=== PATIENT | male | born 1955 | race Caucasian/White ===

== ENCOUNTER 2022-03-27 22:27 | Emergency (ER) | payer MEDICARE, MEDICAID, SELFPAY ==
[2022-03-27 22:48] VITALS: BP 182/98; PULSE 78; RESP 18; TEMP 36.8; O2SAT 98; BMI 29.2
--- NOTE | 2022-03-28 00:07 | CT_ITS ---
PROCEDURE INFORMATION: Exam: CT Abdomen And Pelvis Without Contrast Exam date and time: 03/28/2022 1:11 AM Age: 66 years old Clinical indication: Other: Blood in urine TECHNIQUE: Imaging protocol: Computed tomography of the abdomen and pelvis without contrast. Radiation optimization: All CT scans at this facility use at least one of these dose optimization techniques: automated exposure control; mA and/or kV adjustment per patient size (includes targeted exams where dose is matched to clinical indication); or iterative reconstruction. COMPARISON: No relevant prior studies available. FINDINGS: Lungs: There is a 7 mm calcified granuloma of the left lower lobe. No focal consolidation. No pleural effusion or pneumothorax. Heart: The heart size is normal. No pericardial effusion. Cardiac pacemaker wires noted. Liver: There is a 2.5 cm cyst of the left hepatic lobe. There is an adjacent 5 mm cyst. No solid mass identified on this noncontrast study. Gallbladder and bile ducts: Gallbladder contents are heterogeneous suspicious for sludge and/or small stones. No ductal dilation. Pancreas: Unremarkable. Spleen: There is a 2 cm cyst of the spleen with mild peripheral calcifications. Adrenal glands: Unremarkable. Kidneys and ureters: No renal mass or hydronephrosis. There are rounded hypodensities of the inferior right kidney suspicious for cysts measuring 1.5 and 1.0 cm. There is a rounded exophytic hypodensity at the right renal hilum also suspicious for cyst. Calcifications at the kita bilaterally likely vascular in origin. The ureters are normal in caliber. No urinary tract stone Stomach and bowel: Small and large bowel caliber is normal. There is moderate right colonic stool. No significant diverticulosis or CT evidence of acute diverticulitis. The Appendix: No evidence of appendicitis. Intraperitoneal space: No free air. No significant fluid collection. Retroperitoneal space: No bulky lymphadenopathy. Vasculature: There is mild aneurysmal dilation of the infrarenal abdominal aorta measuring 3.1 cm. Lymph nodes: Unremarkable. No enlarged lymph nodes. Urinary bladder: The urinary bladder is partially decompressed and unremarkable. No urinary bladder stone. Reproductive: The prostate is normal in size with small calcifications. Bones/joints: Unremarkable. No acute osseous abnormality. Soft tissues: Unremarkable. IMPRESSION: 1. Multiple rounded hypodensities of the right kidney suspicious for cysts. Confirmation with renal ultrasound is suggested. 2. No evidence of urinary tract stone. Etiology of hematuria is not identified on the study. 3. Hepatic and splenic cysts. 4. Mild aneurysmal dilation of the infrarenal abdominal aorta measuring 3.1 cm. 5. Evidence of old granulomatous disease. COMMENTS: Consistent with the [employer]'s Incidental Findings Committee white paper (J Am Kristi Radiol 2018): Any incidental renal lesion less than 1 cm or classified as too small to characterize, or any incidental cystic renal lesion characterized as simple-appearing, is likely benign. No follow-up imaging is recommended for these lesions per consensus recommendations based on imaging criteria.
[2022-03-28 00:10] LABS: Microscopic, Urine URINE MICROSCOPIC (MICROSCOPIC)
--- NOTE | 2022-03-28 00:15 | PC.NURSE ---
patient going to Radiology @ this time.
[2022-03-28 00:21] LABS: Basophils # 0.1 K/mm3 (0-0.2); Basophils % 1.3 % (0.1-2.0); Eosinophils # 0.3 K/mm3 (0.0-0.4); Eosinophils % 3.4 % (0.1-12.0); Hemoglobin 15.9 g/dL (14.1-18.0); Lymphocytes # 1.4 K/mm3 (0.7-4.5); Lymphocytes % 16.2 % (10-50); Mean Corpuscular HGB Conc 32.6 g/dL (31.8-35.4); Mean Corpuscular Hemoglobin 29.1 pg (27.0-31.2); Mean Corpuscular Volume 89.3 fl (80-94); Mean Platelet Volume 11.5 fl (7.4-10.4); Monocytes # 0.5 K/mm3 (0.1-1.0); Monocytes % 6.3 % (1.7-9.3); Neutrophils # 6.2 K/mm3 (1.8-7.8); Neutrophils % 72.9 % (37.0-80.0); Platelet Count 158 K/mm3 (142-424); Red Blood Count 5.48 M/mm3 (4.60-6.20); White Blood Count 8.4 K/mm3 (4.8-10.8)
--- NOTE | 2022-03-28 00:21 | PC.NURSE ---
patient Back from [facility] @ this time.
[2022-03-28 00:24] LABS: Chloride 103 mmol/L (98-107); Potassium 4.3 mmoL/L (3.5-5.1); Sodium 141 mmol/L (136-145)
[2022-03-28 00:27] LABS: Alanine Aminotransferase 18 U/L (12-78); Albumin Level 4.2 g/dl (3.5-5.0); Albumin/Globulin Ratio 1.3 (1.1-1.8); Alkaline Phosphatase 89 U/L (38-126); Anion Gap 12.3 mEq/L (5-15); Aspartate Amino Transferase 27 U/L (17-59); Bilirubin,Total 0.6 mg/dl (0.2-1.3); Blood Urea Nitrogen 20 mg/dl (9-20); Calcium 9.1 mg/dl (8.4-10.2); Carbon Dioxide 30 mmol/L (22.0-30.0); Creatinine Clearance Estimated 57 mL/min (50-200); Estimated Glomerular Filt Rate 43 ml/min (>60); GFR (African American) 52 ML/MIN (>60); Globulin 3.3 g/dL (1.3-3.2); Glucose 99 mg/dl (74-100); Total Protein,Serum 7.5 g/dl (6.3-8.2)
--- NOTE | 2022-03-28 00:28 | HMH.EDUROGM ---
Discharge Plan Disposition Chief Complaint: Urogenital-Male Prescriptions Prescriptions: No Action atorvastatin 40 mg Tablet 40 mg PO DAILY carvedilol 6.25 mg Tablet 6.25 mg PO DAILY polyethylene glycol 3350 [Miralax] 17 gram Powder In Packet 17 g PO DAILY clopidogrel 75 mg Tablet 75 mg PO DAILY isosorbide dinitrate 20 mg Tablet 20 mg PO TID Rx Instructions: allow nitrate-free interval of 12-14 hrs per 24-hr period nitroglycerin 0.4 mg Tablet, Sublingual 0.4 mg SUBLINGUAL Q5M PRN (Reason: Chest Pain) Rx Instructions: do not exceed 3 doses per episode docusate sodium 100 mg Capsule 100 mg PO BID hydroxyzine HCl 25 mg Tablet 25 mg PO QID aspirin 81 mg Tablet 81 mg PO DAILY loperamide 2 mg Capsule 2 mg PO Q4H PRN (Reason: Diarrhea) Rx Instructions: administer after each loose stool until symptoms controlled; do not exceed 8 mg per 24 hrs Referrals Follow up/Referrals: Danie Regalado MD [Primary Care Provider] - See instructions Clinical Impressions Clinical Impression: Hematuria, AAA (abdominal aortic aneurysm) without rupture Instructions Patient Instructions: DI for Hematuria Discharge ED Provider: Danie Regalado Male Urogenital HPI General Chief complaint: Urogenital-Male Stated complaint: Blood in Urine Time Seen by Provider: 03/28/22 00:28 Mode of Arrival: EMS Source of Information: Patient, EMS and Medical Record Limitations: No Limitations Description of Symptoms (Recalled from ER Triage Doc. by RN): pt states that at approx 1930 he went to the restroom and peed bright red blood . Denies any painful urination, urinary frequency, pressure with urination, injury or burning with urination. Also denies recent fever or flank or back pain. History of Present Illness HPI Narrative: wm with reported hematuria tonight w/o fever or rash and no trauma Onset (ago): hour(s) Duration: intermittent Severity: moderate Reports denies other symptoms Related Data Home Medications Medication Instructions Recorded Confirmed aspirin 81 mg tablet 81 mg PO DAILY Supplement 03/27/22 03/27/22 atorvastatin 40 mg tablet 40 mg PO DAILY Cholesterol 03/27/22 03/27/22 carvedilol 6.25 mg tablet 6.25 mg PO DAILY Blood thinner 03/27/22 03/27/22 clopidogrel 75 mg tablet 75 mg PO DAILY Blood thinner 03/27/22 03/27/22 docusate sodium 100 mg capsule 100 mg PO BID bowels 03/27/22 03/27/22 hydroxyzine HCl 25 mg tablet 25 mg PO QID Anxiety 03/27/22 03/27/22 isosorbide dinitrate 20 mg tablet 20 mg PO TID Blood thinner 03/27/22 03/27/22 loperamide 2 mg capsule 2 mg PO Q4H PRN Diarrhea 03/27/22 03/27/22 nitroglycerin 0.4 mg sublingual 0.4 mg sublingual Q5M PRN Chest 03/27/22 03/27/22 tablet Pain polyethylene glycol 3350 17 gram 17 g PO DAILY diarrhea 03/27/22 03/27/22 oral powder packet (Miralax) Allergies Allergy/AdvReac Type Severity Reaction Status Date / Time No Known Allergies Allergy Verified 03/28/22 00:06 [facility] Social History Smoking Status: Current every day smoker alcohol intake: never current occupational status: retired Travel in the last 8 weeks: None ROS Obtained: Yes All systems reviewed & no additional complaints except as documented Physical Exam General General appearance: alert Head Head exam: normocephalic Eye Eye exam: Present PERRL and EOMI ENT ENT exam: Present mucous membranes moist Neck Neck exam: Present trachea midline Respiratory Respiratory exam: Present normal lung sounds bilaterally; Absent respiratory distress Cardiovascular Cardiovascular exam: Present regular rate Abdominal Exam Abdominal exam: Present soft; Absent tenderness Extremities Exam Extremities exam: Present full ROM Back Exam Back exam: Absent CVA tenderness (R) Neurological Exam Neurological exam: Present alert and CN II-XII intact Psychiatric Psychiatric exam: Present normal affect Skin Skin exam: Absent
[2022-03-28 00:34] LABS: Appearance,Urine CLEAR (Clear); Bilirubin,Urine Negative (Negative); Blood, Urine 3+ (Negative); Color,Urine YELLOW (Yellow); Glucose,Urine (UA) Negative (Negative); Ketones,Urine TRACE (Negative); Leukocyte Esterase,Urine Negative (Negative); Nitrate,Urine Negative (Negative); PH,Urine 5.5 (5.0-8.5); Protein,Urine 2+ (Negative); Specific Gravity, Urine >= 1.030 (1.005-1.030); Urobilinogen,Urine 0.2 EU/dl (0.2)
[2022-03-28 00:40] LABS: Bacteria,Urine 1+ /lpf; Mucus,Urine 1+ /lpf; WBC,Urine Occasional #/hpf (0-3)
--- NOTE | 2022-03-28 01:48 | PC.NURSE ---
Called [facility] regarding patients discharge. Spoke with Iona who stated she will send someone to pick him up.
[2022-03-28 01:50] VITALS: BP 178/92; PULSE 76; RESP 18; TEMP 36.6; O2SAT 98
[2022-03-28 02:30] LABS: Prostate Specific Ag Screen 2.1 ng/ml (0.0-4.0)
== END 2022-03-28 02:02 | disposition home or self-care (01) ==
PROVIDERS: Emergency Provider Emergency Medicine; PCP Emergency Medicine
DX: R31.9 Hematuria, unspecified (principal); R07.9 Chest pain, unspecified; R19.7 Diarrhea, unspecified; F17.200 Nicotine dependence, unspecified, uncomplicated; Z79.02 Long term (current) use of antithrombotics/antiplatelets; Z79.82 Long term (current) use of aspirin; Z79.899 Other long term (current) drug therapy
CPT/HCPCS: 74176; 80053; 81001; 85025; 87086; 87088; 87186; 99285; G0103

== ENCOUNTER 2024-10-01 16:36 | Emergency (ER) | payer MEDICARE, MEDICAID, SELFPAY ==
[2024-10-01 16:45] VITALS: BP 165/85; PULSE 72; RESP 18; TEMP 36.8; O2SAT 100; BMI 23.5
--- NOTE | 2024-10-01 16:48 | XR_ITS ---
PROCEDURE INFORMATION: Exam: XR Left Hand Exam date and time: 10/01/2024 5:01 PM Age: 69 years old Clinical indication: Injury or trauma; Fall; Blunt trauma (contusions or hematomas); Hand; Left; Additional info: Foosh injury, left hand pain and swelling TECHNIQUE: Imaging protocol: Radiologic exam of the left hand. Views: 3 or more views. COMPARISON: CR XR HAND LT MIN 3V 10/01/2024 5:01 PM FINDINGS: Bones/joints: There is an acute nondisplaced fracture involving the distal radial metaphysis. No significant angulation or comminution. No additional acute fractures are seen. Previously questioned mild widening of the scapholunate joint space appears less prominent on current exam. Soft tissues: There is mild associated perifractural edema. No subcutaneous emphysema or radiopaque foreign bodies. IMPRESSION: Acute nondisplaced fracture involving the distal radial metaphysis with associated soft tissue edema.
--- NOTE | 2024-10-01 16:49 | XR_ITS ---
PROCEDURE INFORMATION: Exam: XR Left Forearm Exam date and time: 10/01/2024 5:05 PM Age: 69 years old Clinical indication: Injury or trauma; Fall; Blunt trauma (contusions or hematomas); Arm, lower; Left; Additional info: Left wrist pain and swelling after foosh injury TECHNIQUE: Imaging protocol: Radiologic exam of the left forearm. Views: 2 views. COMPARISON: CR XR FOREARM LT 2V 10/01/2024 5:05 PM FINDINGS: Bones/joints: There is an acute nondisplaced fracture involving the distal radial metaphysis. No significant angulation or comminution. No additional acute fractures are seen. Soft tissues: There is mild associated perifractural edema. No subcutaneous emphysema or radiopaque foreign bodies. No elbow joint effusion. IMPRESSION: Acute nondisplaced fracture involving the distal radial metaphysis with associated soft tissue edema.
--- NOTE | 2024-10-01 16:49 | XR_ITS ---
PROCEDURE INFORMATION: Exam: XR Left Wrist Exam date and time: 10/01/2024 5:02 PM Age: 69 years old Clinical indication: Injury or trauma; Fall; Blunt trauma (contusions or hematomas); Wrist; Left; Additional info: Left wrist pain and swelling after foosh injury TECHNIQUE: Imaging protocol: Radiologic exam of the left wrist. Views: 3 or more views. COMPARISON: CR Wrist L 10/01/2024 5:02 PM FINDINGS: Bones/joints: There is an acute nondisplaced fracture involving the distal radial metaphysis. No significant angulation or comminution. No additional acute fractures are seen. Soft tissues: There is mild associated perifractural edema. No subcutaneous emphysema or radiopaque foreign bodies. IMPRESSION: Acute nondisplaced fracture involving the distal radial metaphysis with associated soft tissue edema.
--- NOTE | 2024-10-01 16:51 | ED_ITS ---
<Statement entered by Marie Lopez DO - 10/02/24 00:44> I was consulted by the FAVIOLA, and we discussed the complexity of the problems being addressed. I approved the treatment and management plan for this patient's care in the emergency department, thus performing a substantive portion of the medical decision making. Marie Lopez DO Discharge Plan Disposition Patient Disposition: Home, Self-Care Condition: Good Chief Complaint: Extremity Injury, Upper Prescriptions Prescriptions: No Action atorvastatin 40 mg Tablet 40 mg PO DAILY carvedilol 6.25 mg Tablet 6.25 mg PO DAILY polyethylene glycol 3350 [Miralax] 17 gram Powder In Packet 17 g PO DAILY clopidogrel 75 mg Tablet 75 mg PO DAILY isosorbide dinitrate 20 mg Tablet 20 mg PO TID Rx Instructions: allow nitrate-free interval of 12-14 hrs per 24-hr period nitroglycerin 0.4 mg Tablet, Sublingual 0.4 mg SUBLINGUAL Q5M PRN (Reason: Chest Pain) Rx Instructions: do not exceed 3 doses per episode docusate sodium 100 mg Capsule 100 mg PO BID hydroxyzine HCl 25 mg Tablet 25 mg PO QID aspirin 81 mg Tablet 81 mg PO DAILY loperamide 2 mg Capsule 2 mg PO Q4H PRN (Reason: Diarrhea) Rx Instructions: administer after each loose stool until symptoms controlled; do not exceed 8 mg per 24 hrs Referrals Follow up/Referrals: Provider,Referral, MD [Primary Care Provider] - See instructions Juan Pablo Can DO [Staff Physician] - See instructions Activity Restrictions/Add. Instructions Additional Instructions/Restrictions: Please follow-up with the orthopedic doctor in the upcoming days, utilize rest, ice, ibuprofen Tylenol as needed for pain, please keep splint/cast on until orthopedic follow-up. Clinical Impressions Clinical Impression: Fracture of left radius Instructions Patient Instructions: DI for Distal Radius Fracture Print Language Print Language: Swedish Discharge ED Provider: Marie Lopez General Adult HPI General Chief complaint: Extremity Injury, Upper Stated complaint: WRIST INJURY ON09/27/24 Time Seen by Provider: 10/01/24 16:43 Mode of Arrival: EMS Source of Information: Patient and EMS Description of Symptoms (Recalled from ER Triage Doc. by RN): Pt presents from [facility] via [facility] for evaluation of a fracture in his left arm. Pt fell on saturday and had a mobile x-ray done there, received results that there was a fracture. Pt did not hit his head when he fell, -loc/-BT. History of Present Illness HPI narrative: 69-year-old male presents to the emergency department via EMS with left wrist pain and swelling, patient states that he underwent what sounds like a FOOSH injury on Saturday, he describes it as a mechanical fall, he states that he tripped on a twig , causing him to fall and tried to catch his fall with his left hand/wrist, he had what sounds like a mobile x-ray , performed at facility, which showed acute fracture, unsure of exact fracture site, patient has been utilizing Tylenol and ice, with little no relief of his symptomatology, patient has any fever chills chest pain shortness of breath nausea vomiting constipation diarrhea no numbness or tingling, no radicular type symptomatology, patient did not strike the head, did not lose consciousness, no presyncopal or syncopal episode, no dizziness, patient is not on any anticoagulant therapy, otherwise medical history consistent with prior TIA/CVA, hypertension, hyperlipidemia, implantable pacemaker/defibrillator, patient is current everyday smoker, denies any alcohol or drug use, no strays vitals are unremarkable. Onset (ago): day(s) Related Data Home Medications ?Medication ?Instructions ?Recorded ?Confirmed aspirin 81 mg tablet 81 mg PO DAILY Supplement 03/27/22 03/27/22 atorvastatin 40 mg tablet 40 mg PO DAILY Cholesterol 03/27/22 03/27/22 carvedilol 6.25 mg tablet 6.25 mg PO DAILY Blood thinner 03/27/22 03/27/22 clopidogrel 75 mg tablet 75 mg PO DAILY Blood thinner 03/27/22 03/27/22 docusate sodium 100 mg capsule 100 mg PO BID bowels 03/27/22 03/27/22 hydroxyzine HCl 25 mg tablet 25 mg PO QID Anxiety 03/27/22 03/27/22 isosorbide dinitrate 20 mg tablet 20 mg PO TID Blood thinner 03/27/22 03/27/22 loperamide 2 mg capsule 2 mg PO Q4H PRN Diarrhea 03/27/22 03/27/22 nitroglycerin 0.4 mg sublingual 0.4 mg sublingual Q5M PRN Chest 03/27/22 03/27/22 tablet Pain polyethylene glycol 3350 17 gram 17 g PO DAILY diarrhea 03/27/22 03/27/22 oral powder packet (Miralax) Allergies Allergy/AdvReac Type Severity Reaction Status Date / Time No Known Allergies Allergy Verified 03/28/22 00:06 [facility] Disclaimer: The information contained in this section may have been updated after the patient was seen, as this information can be updated by other users. Social History (Updated 03/28/22 @ 01:49 by Danie Regalado MD) Smoking Status: Current every day smoker alcohol intake: never current occupational status: retired Travel in the last 8 weeks?: None Have you lived/traveled outside [place] in past 30 days?: No Contact w/someone who lives/traveled outside [place] past 30 days?: No Exposure to someone with infectious disease in past 14 days?: No Do you have a fever (greater than 100.4 F or 38 C)?: No Have you tested positive for COVID-19?: No Exposed to someone with COVID-19 in past 14 days?: No Do you have a sore throat?: No Do you have a cough?: No Do you have any weakness?: No Do you have any diarrhea?: No Are you experiencing any unusual bleeding?: No Do you have any muscle aches/pain?: No Do you have any abdominal pain?: No Are you experiencing loss of taste or smell?: No ROS Obtained: Yes All systems reviewed & no additional complaints except as documented Physical Exam General General appearance: alert and in no apparent distress Head Head exam: atraumatic and normocephalic Eye Eye exam: Present PERRL and EOMI ENT ENT exam: Present mucous membranes moist Neck Neck exam: Present normal inspection Chest Chest inspection: Present normal inspection and symmetric chest wall rise Respiratory Respiratory exam: Present normal lung sounds bilaterally; Absent respiratory distress Cardiovascular Cardiovascular exam: Present regular rate and normal rhythm Abdominal Exam Abdominal exam: Present soft; Absent tenderness Extremities Exam Extremities exam: Present normal inspection, tenderness, joint swelling and other (There is obvious soft tissue swelling no obvious acute fracture deformity, otherwise neurovascular intact, pain palpation around the dorsal aspect of the patient's left wrist as well as the carpal bone region, however patient moves extremity to command, with some pain limiting range of motion, does ); Absent full ROM Neurological Exam Neurological exam: Present alert and oriented X3 Psychiatric Psychiatric exam: Present normal affect Skin Skin exam: Present warm and dry Medical Decision Making Medical Records Medical records reviewed: Yes I reviewed the patient's medical records. Screening: Per USPSTF and CDC recommendations, given the prevalence of disease in our region, it is our hospital?s policy to screen for HIV and viral Hepatitis for all patients aged 18 and over and those with ongoing risk factors. Guillermo Inquiry Pt receiving controlled substance: Yes Guillermo was queried for this patient: No Reason not queried -: Emergent pt cond-no time Risks and benefits of using a controlled substance: were discussed with pt by me Vital Signs: 10/01/24 16:45 10/01/24 17:24 Temperature 98.3 F Temperature Source Oral Pulse Rate 71 Pulse Rate [Right] 72 Respiratory Rate 18 Blood Pressure 151/89 H Blood Pressure [Right Arm] 165/85 H Blood Pressure Mean [Right Arm] 111 Blood Pressure Source Automatic Cuff Blood Pressure Source [Right Arm] Automatic Cuff Blood Pressure Position [Right Arm] Sitting 02 Sat by Pulse Oximetry 100 97 Oxygen Delivery Method Room Air Room Air Orders (Tests/Meds): ED MEDICATIONS Discontinued Medications Generic Name Dose Route Start Last Admin Trade Name Freq PRN Reason Stop Dose Admin Oxycodone/Acetaminophen 1 each 10/01/24 16:49 10/01/24 17:05 Oxycodone 5mg W/Apap 325mg Tablet PO 10/01/24 16:50 1 each ONCE ONE Administration ORDERS Category Date Time Status XR forearm LT 2V Stat Exams 10/01/24 16:49 Completed XR hand LT min 3V Stat Exams 10/01/24 16:48 Completed XR wrist LT min 3V Stat Exams 10/01/24 16:49 Completed Medical Decision Narrative: 69-year-old male presents to the emergency department with a left wrist injury after FOOSH, differential diagnose include but not limited to, hand fracture, wrist fracture, forearm fracture, hand sprain, wrist sprain, other arm sprain. I discussed patient case with attending physician Obtain x-rays of the hand, wrist, and forearm for further eval uation/characterization, will give 5 mg p.o. Percocet, patient utilize Tylenol unknown milligram strength at approximately 9 AM today. I reviewed the patient's left wrist x-ray along with the corresponding radiologic report acute nondisplaced fracture involving the distal radial metaphysis with associated soft tissue edema. I reviewed the patient's wrist x-ray addendum at 6:18 PM, there is suggestion of mild widening of the scapholunate joint space raising the question of ligamentous injury if there is concern for scaphoid fracture/pathology consider cross-sectional imaging. Discussed this patient's case with Dr. Can the on-call orthopedic surgeon at approximately 6:25 PM, he recommends volar splint with Ortho-Glass and follow-up in orthopedic clinic. Splint performed by the emergency room technicians, preprocedure and postprocedure neurovascular intact, patient tolerated procedure well, patient will follow-up with orthopedic physician in the upcoming days, recommend rest ice compression Tylenol ibuprofen and strict ED return precautions given, patient voiced understanding agree with current plan/discharge plan. Critical Care Critical Care Time Critical Care Time: No
[2024-10-01] MEDS: OXYCODONE 5MG W/APAP 325MG TABLET 1 EACH PO (17:05)
[2024-10-01 17:24] VITALS: BP 151/89; PULSE 71; O2SAT 97
--- NOTE | 2024-10-01 19:48 | PC.NURSE ---
Attempted to call parvin bauer twice about this pt. no answer at this time.
[2024-10-01 20:00] VITALS: BP 164/91; PULSE 61; RESP 18; TEMP 36.7; O2SAT 98
== END 2024-10-01 20:01 | disposition home or self-care (01) ==
PROVIDERS: Emergency Provider Emergency Medicine
DX: S52.502A Unspecified fracture of the lower end of left radius, initial encounter for closed fracture (principal); W01.10XA Fall on same level from slipping, tripping and stumbling with subsequent striking against unspecified object, initial encounter
CPT/HCPCS: 29125; 73090; 73110; 73130; 99284

== ENCOUNTER 2024-10-20 10:14 | Outpatient (CLI) | payer MEDICARE, MEDICAID, SELFPAY ==
--- NOTE | 2024-10-20 10:18 | XR_ITS ---
FINAL REPORT CLINICAL HISTORY: left wrist fx COMPARISON: None FINDINGS: AP, oblique, and lateral views of the left wrist were obtained. There is no prior exam for comparison. The wrist and left hand are in a cast. There is a fracture of the distal left radial metaphysis, which is not displaced but appears to extend to the radiocarpal joint. Mild degenerative joint disease is present, as well as mild soft tissue edema. IMPRESSION: Fracture of the distal left radial metaphysis, not displaced but appears to extend into the radiocarpal joint. Reviewed, Interpreted and Dictated by Ivory Vines MD Transcribed by Mel Almaraz Authenticated and [facility]
--- NOTE | 2024-10-20 10:18 | XR_ITS ---
FINAL REPORT CLINICAL HISTORY: left hand pain COMPARISON: None FINDINGS: 2 views of the left shoulder were obtained. There is no fracture or dislocation. The joint space is preserved. Soft tissues are unremarkable. IMPRESSION: No acute osseous abnormality of the left shoulder. Reviewed, Interpreted and Dictated by Ivory Vines MD Transcribed by Mel Almaraz Authenticated and [facility]
--- NOTE | 2024-10-20 10:18 | XR_ITS ---
FINAL REPORT CLINICAL HISTORY: left wrist fx COMPARISON: None FINDINGS: AP, oblique, and lateral views of the left hand were obtained. There is no prior exam for comparison. The patient is in a cast. There is a fracture of the distal left radial metaphysis, not displaced but appears to extend to the radiocarpal joint. Mild degenerative joint disease is present. Mild soft tissue swelling is noted. The remainder of the hand appears intact. IMPRESSION: Fracture of the distal left radial metaphysis, nondisplaced but appears to extend to the radiocarpal joint. The remainder of the hand appears intact. Reviewed, Interpreted and Dictated by Ivory Vines MD Transcribed by Mel Almaraz Authenticated and [facility]
== END 2024-10-20 23:59 | disposition home or self-care (01) ==
LOC: RAD 10:16
PROVIDERS: Visit Provider Physician Assistant Surgical
DX: S52.592A Other fractures of lower end of left radius, initial encounter for closed fracture (principal); M19.032 Primary osteoarthritis, left wrist; M19.042 Primary osteoarthritis, left hand; M79.642 Pain in left hand
CPT/HCPCS: 73030; 73110; 73130

== ENCOUNTER 2024-11-16 10:38 | Outpatient (CLI) | payer MEDICARE, MEDICAID, SELFPAY ==
--- NOTE | 2024-11-16 10:41 | XR_ITS ---
FINAL REPORT CLINICAL HISTORY: left wrist fx, follow up COMPARISON: 10/20/2024 FINDINGS: LEFT WRIST Three views demonstrate no acute fracture or dislocation. Bridging callus formation is seen of a transverse fracture of the distal left radial metaphysis. This is unchanged from prior exam. Overlying cast has been removed. The visualized joint spaces are normally aligned. The soft tissues are unremarkable. IMPRESSION: No significant change in distal left radial metaphysis fracture. Reviewed, Interpreted and Dictated by Anuj Rosales MD Transcribed by Deirdre Bledsoe Authenticated and [facility]
== END 2024-11-16 23:59 | disposition home or self-care (01) ==
LOC: RAD 10:41
PROVIDERS: Visit Provider Physician Assistant
DX: S52.592A Other fractures of lower end of left radius, initial encounter for closed fracture (principal)
CPT/HCPCS: 73110

== ENCOUNTER 2024-12-14 09:42 | Outpatient (CLI) | payer MEDICARE, MEDICAID, SELFPAY ==
--- OUTSIDE RECORDS SUMMARY | 2023-09-02 10:30 | XMS_ITS | Continuity of Care Document ---
Author Organization [facility] Address [address] [place] [address] Phone Care Team Providers Care Water Resource Engineer Name Role Phone Elroy Curtis OD Unavailable Unavailable Allergies, Adverse Reactions, Alerts Substance Reaction Status Criticality No Known Allergies Active No Inform ation Medications Medication Instructions Dosage Effective Dates (start - stop) Status Comments doxycycline hyclate 100 mg capsule Take one capsule by mouth BID for 14 days - No Longer Active Correction doxycycline hyclate 80 mg tablet,delayed release take 1 tablet by oral route 2 times everyday x 2 weeks - No Longer Active Procedures Procedure Date Refraction E&M est moderate complexity E&M New moderate complexity Refraction Est Pt Comprehensive Eye Exam 9 New Patient Level III Advance Directives Directive Yes / No Effective Date File Name No Information Encounters Encounter Description Practice Location Reason(s) For Visit Diagnoses Date Provider Providers Copied on Encounter E&M est moderate complexity [facility], [address] [place], [place], [id number] , [place] tel:[phone] TEA Pt Bubba Pineda decreased vision (chief complaint) Age-related nuclear cataract, bilateralKerato conjunctivitis sicca, not specified as Sj g nader's, bilateralDiplop iaPresbyopia Kirsten Abbasi. [address] [place], [place], [id number], [place]. tel:[phone] Referring Provider: Harlan Navarrete, [place], [address]. tel:[phone] [facility], [address], [place], [place], [id number] , tel: [phone] TEA Pt [place] No Information Jul-2 4 [address] [place]. [place], [id number], . tel:[phone] E&M New moderate complexity [facility], [address], [place], [place], [id number] , tel: [phone] TEA Pt [place] itchy (chief complaint) Hordeolum internum left lower eyelidDiplopia Jul-2 4 [address]aus[address] Elroy. [facility] [place], [id number], . tel:[phone] Referring Provider: Harlan Navarrete, [place], [address]. tel:[phone] [facility], [address], [place], [place], [id number] , tel: [phone] TEA Pt [place] blurry vision (chief complaint) PresbyopiaAge-r elated nuclear cataract, bilateral 9 Juan Carlos Johnson. [address] [place] [address], [facility], . [phone] Referring Provider: Alex Castellanos, [address], [facility]. tel:[phone] New Patient Level III [facility], [place], [id number] , tel: [phone] [facility] No Information 5 No Information Family History Family Member Type Diagnosis Age At Onset Father Problem (finding) Cancer Immunizations Vaccine Date Status Comments Flu (split) (3 yrs or older) administered Source: Other Provider Flu (split) (3 yrs or older) administered Source: Other Provider Payers Payer name Insurance type Covered democrat ID Dunia lagunas(s) Medicare Traditional [id number] [facility] [place] [id number] Social History Type Description Quantity Date Captured Comments Alcohol Use Details Unknown Caffeine Use Details Unknown Tobacco Use Status Ex-cigarette smoker 024 Smoking Status Former smoker Sex Male Chief Complaint And Reason For Visit From encounter dated '09/02/2023 14:30'. decreased vision (chief complaint). Description: The 68 year old patient presents for evaluation ofdecreased vision in the OU, . The symptom is constant. In addition, the condition is associated with difficulty reading street signs. Pt states NVA is fine with readers. Pt denies any pain or discomfort. No gtts. Pt states occasional double vision when driving. Pt unsure of horizontal or verticaldouble vision. Reason For Referral Reason For Referral No Information Plan Of Treatment Date Type Action Status Patient Education Presbyopia: Care Instru ctions completed History Of Present Illness Encounter Date Complaint History Of Prese nt Illness decreased vision The 68 year old patient presents for evaluation of decreased vision in the OU, . The symptom is constant. In addition, the condition is associated with difficulty reading street signs. Pt states NVA is fine with readers. Pt denies any pain or discomfort. No gtts. Pt states occasional double vision when driving. Pt unsure of horizontal or vertical double vision. itchy The 68 year old patient presents for evaluation of itchy in the OS. It started about 2 day(s) ago. The onset was sudden. The symptom is constant. Pt reports to have Itchy, pressure, and watery eyes. Pt states its the first time its happen. Pt states he used some AT on Saturday it seemed to help.Pt states once we address the itchiness, he wants to schedule a CEE. blurry vision The 64 year old male presents for evaluation of blurry vision in the OU. It started about 1 year(s) ago. The symptom is constant. In addition, the condition is associated with difficulty with hobbies due to vision. Pt is here for a CEE and sts that his distance and near VA is blurry (pt sts that he does wear OTC readers only). Pt denies any floaters or flashes of light and denies any glare when driving. Pt sts that he does sometimes close an eye due to double VA with distance. Functional Status Date Functional Assessmen t No Information Medications Administered Medication Instructions Dosage Effective Dates (start - stop) Status Comments No Drug Therapy Prescribed Instructions Date Instruction Additional Infor twinleda 1y CEE NS w BAT/Dr Curtis Rela thomas to Age-related nuclear cataract, bilateral Impression/Plan Related to Presb yopia Impression/Plan Related to Kerat oconjunctivitis sicca, not specified as Kenji paul, bilateral Impression/Plan Related to Age-r elated nuclear cataract, bilateral Impression/Plan Related to Diplo leda Impression/Plan Related to Age-r elated nuclear cataract, bilateral 2-[address] Zack wiggins diplopia Related to Diplopia Impression/Plan Related to Horde olum internum left lower eyelid Impression/Plan Related to Diplo leda Return in [address] Rangel for CEE Related to Age-related nuclear cataract, bilateral Impression/Plan Related to Age-r elated nuclear cataract, bilateral Impression/Plan Related to Presb yopia Assessments Type Assessment Date assessment Age-related nuclear cataract, bi lateral assessment Keratoconjunctivitis sicca, not specified as Kenji paul, bilateral assessment Diplopia assessment Presbyopia impression Diplopia: H53.2 impression Age-related nuclear cataract, bi lateral: H25.13 impression Keratoconjunctivitis sicca, not specified as Kenji paul, bilateral: H16.223 impression Presbyopia: H52.4 Apr-15-2024 Patient Care Teams Name Effective Dates (start - stop) Status Members No Information
--- OUTSIDE RECORDS SUMMARY | 2024-01-03 05:32 | XMS_ITS | Continuity of Care Document ---
Author Organization [facility] Address [address] [place] [address] Phone Care Team Providers Care Heading Pinner Name Role Phone Danie Wilkinson Unavailable Unavailabl e Allergies, Adverse Reactions, Alerts Substance Reaction Status Criticality No Known Allergies Active No Inform ation Medications Medication Instructions Dosage Effective Dates (start - stop) Status Comments doxycycline hyclate 100 mg capsule Take one capsule by mouth twice per day - Active dispense 10 day supply Xdemvy 0.25 % eye drops 1 gtt BID OU x 6 weeks - Active Procedures Procedure Date Limited Exam New Pt Advance Directives Directive Yes / No Effective Date File Name No Information Encounters Encounter Description Practice Location Reason(s) For Visit Diagnoses Date Provider Providers Copied on Encounter [facility], [address] [place] [address], [id number] , [place] tel:[phone] [place] No Information 4 Liza Rowland. [address] [place] [address], [id number], [place]. tel:[phone] [facility], [address] [place] [address], [id number] , [place] tel:[phone] [place] 2 emergency visit (chief complaint) Chalazion left lower eyelidDermatitis due to Demodex speciesUnspecified blepharitis unspecified eye, unspecified eyelid 4 Paige Interiano. [address] [place] [address], [id number], [place]. tel:[phone] Family History Family Member Type Diagnosis Age At Onset Problem No family history of Macular degeneration Problem No family history of Diabete s mellitus Problem No family history of Glaucom a Payers Payer name Insurance type Covered republican ID Authorjarret lagunas(s) No Information Social History Type Description Quantity Date Captured Comments Sex Male Smoking Status No Information Chief Complaint And Reason For Visit No Information Reason For Referral Reason For Referral No Information Plan Of Treatment Date Type Action Status Patient Education Xdemvy 0.25 % eye drops completed History Of Present Illness Encounter Date Complaint History Of Prese nt Illness emergency visit Pt is a 68 year old male and is here for a emergency visit. Pt c/o swollen bump LLL. Pt states that for the past 3 days he has had a swollen red bump on LLL that is itchy and sore to touch. Pt states that he has been using warm compresses and OTC stye drops, Pt states that it has gotten a little better. Functional Status Date Functional Assessmen t No Information Instructions Date Instruction Additional Infor mation Impression/Plan Related to Chala katlyn left lower eyelid Impression/Plan Related to Clutier titis due to Demodex species Impression/Plan Related to Unspe cified blepharitis unspecified eye, unspecified eyelid Assessments Type Assessment Date No Information Patient Care Teams Name Effective Dates (start - stop) Status Members No Information
--- OUTSIDE RECORDS SUMMARY | 2024-12-14 09:52 | XMS_ITS | Clinical Summary ---
Author Organization [facility] Address [address] [place] [phone] Phone Care Team Providers Care Audio Recording Engineer Name Role Phone Anna Crow APRN Primary Care Physician Conditions or Problems Problem Name Problem Code Onset Date Status Entry Date Provider Comment Standard Description Annotate Counseling for nutrition Z71.3 (ICD-10-CM) 07/15 Inactive 07/15 Katie Mast [facility] Dietary counseling and surveillance Counseling for nutrition Z71.3 (ICD-10-CM) 06/23 Inactive 06/23 Katie Mast [facility] Dietary counseling and surveillance Colon cancer screening 745423824 (SNOMED CT) 06/13 Active 06/13 Erna Astorga MD Screening for malignant neoplasm of colon Counseling for nutrition Z71.3 (ICD-10-CM) 06/13 Inactive 06/13 Erna Astorga MD Dietary counseling and surveillance Body mass index (BMI) 26.0-26.9; adult Z68.26 (ICD-10-CM) 06/13 Active 06/13 Erna Astorga MD Body mass index [BMI] 26.0-26.9, adult Body mass index (BMI) 25.0-25.9; adult Z68.25 (ICD-10-CM) 05/31 Correction 05/31 Erna Astorga MD Body mass index [BMI] 25.0-25.9, adult Well adult 162115038 (SNOMED CT) 06/13 Active 06/13 Erna Astorga MD Well adult PVD with zayda royal 90766073 (SNOMED CT) 06/08 Active 06/08 Erna Astorga MD Intermittent claudication Counseling for nutrition Z71.3 (ICD-10-CM) 06/07 Inactive 06/07 Katie Pro [facility] Dietary counseling and surveillance Body mass index (BMI) 25.0-25.9; adult Z68.25 (ICD-10-CM) 05/31 Removed 05/31 Johnny Tapia APRN Body mass index [BMI] 25.0-25.9, adult Body mass index (BMI) 25.0-25.9; adult Z68.25 (ICD-10-CM) Correction Johnny Tapia APRN Body mass index [BMI] 25.0-25.9, adult Depression, unspecified 35984301 (SNOMED CT) 05/31 Active 05/31 Johnny Tapia APRN Depressive disorder Body mass index (BMI) 25.0-25.9; adult Z68.25 (ICD-10-CM) Removed Erna Astorga MD Body mass index [BMI] 25.0-25.9, adult Body mass index (BMI) 26.0-26.9; adult Z68.26 (ICD-10-CM) 01/29 Correction 01/29 Erna Astorga MD Body mass index [BMI] 26.0-26.9, adult CKD stage 3 (gfr 30-59) 849114914 (SNOMED CT) Active Erna Astorga MD Chronic kidney disease stage 3 Tobacco dependence, continuous 274932404 (SNOMED CT) Active Erna Astorga MD Tobacco dependence, continuous Well adult 823886330 (SNOMED CT) Inactive Erna Astorga MD Well adult Claudicatio n bilateral 38041039 (SNOMED CT) Active Erna Astorga MD Intermittent claudication Acute nontraumati c kidney injury [id number] 9103 (SNOMED CT) Active Erna Astorga MD Acute nontraumatic kidney injury Third degree AV block 67283004 (SNOMED CT) Active Erna Astorga MD Complete atrioventricul ar block Coronary artery disease, S/P PTCA/stent 25174472 (SNOMED CT) Active Erna Astorga MD Coronary arterioscleros is Body mass index (BMI) 26.0-26.9; adult Z68.26 (ICD-10-CM) 01/29 Removed 01/29 Danie Ye APRN Body mass index [BMI] 26.0-26.9, adult Body mass index (BMI) 27.0-27.9; adult Z68.27 (ICD-10-CM) 08/31 Correction 08/31 Danie Ye APRN Body mass index [BMI] 27.0-27.9, adult Hypertensiv e crisis, unspecified 755131091 (SNOMED CT) 01/29 Active 01/29 Danie Ye APRN Hypertensive crisis Dizziness 213257075 (SNOMED CT) 01/29 Active 01/29 Danie Ye APRN Dizziness Bradycardia 01675969 (SNOMED CT) 01/29 Active 01/29 Danie Ye APRN Bradycardia Negative PPD 796014494 (SNOMED CT) 09/03 Inactive 09/03 Evelyn Black RN [place]: negative Body mass index (BMI) 27.0-27.9; adult Z68.27 (ICD-10-CM) 08/31 Removed 08/31 Karen Thrasher APRN Body mass index [BMI] 27.0-27.9, adult HTN 48158925 (SNOMED CT) 08/31 Active 08/31 Karen Thrasher APRN Hypertensive disorder Health screening 55178404 (SNOMED CT) 08/31 Inactive 08/31 Karen Thrasher APRN Specialized medical examination Elevated blood pressure without diagnosis of hypertensio n 471778737 (SNOMED CT) 07/28 Active 07/28 Karen Thrasher APRN Elevated blood-pressure reading without diagnosis of hypertension CELLULITIS NOS 480130370 (SNOMED CT) 07/26 Inactive 07/26 S-old J-old Cellulitis Medications Medication Instructions Start Date Stop Date Generic Name NDC Provider HYDRALAZINE HCL 50 MG TABS TAKE ONE TABLET EVERY 8 HOURS HYDRALAZINE HCL [id number] Erna Astorga MD QC MENS DAILY MULTIVITAMIN TABS one qd MULTIPLE VITAMINS-MINERA LS 93684909677 Erna Astorga MD MINOCYCLINE 100MG BID X 14 DAYS MINOCYCLINE 100MG BID X 14 DAYS Erna Astorga MD LISINOPRIL 10 MG TABS TAKE 1 TABLET BY MOUTH 1 TIME A DAY LISINOPRIL 62667366005 Erna Astorga MD TRAMADOL-ACETAMI NOPHEN 37.5-325 MG TABS ONE Q 6 HOURS PRN TRAMADOL-ACETAM INOPHEN 57338841270 Erna Astorga MD HYDRALAZINE HCL 50 MG TABS ONE TAB EVERY 8 HOURS HYDRALAZINE HCL 85530860352 Erna Astorga MD CLOPIDOGREL BISULFATE 75 MG TABS TAKE 1 TABLET BY MOUTH ONCE A DAY CLOPIDOGREL BISULFATE 85748697696 Erna Astorga MD ATORVASTATIN CALCIUM 40 MG TABS TAKE 1 TABLET BY MOUTH AT BEDTIME ATORVASTATIN CALCIUM 95157369858 Erna Astorga MD AMLODIPINE BESYLATE 10 MG TABS TAKE 1 TABLET BY MOUTH 1 TIME A DAY AMLODIPINE BESYLATE 84928234781 Erna Astorga MD ASPIR-LOW 81 MG ORAL TABLET DELAYED RELEASE TAKE 1 TABLET BY MOUTH 1 TIME A DAY ASPIRIN 66223409830 Erna Astorga MD LISINOPRIL 10 MG TABS TAKE 1 TABLET BY MOUTH 1 TIME A DAY LISINOPRIL 82941035856 Karen Thrasher TRANSCRIPTION MINOCYCLINE 100MG BID X 14 DAYS MINOCYCLINE 100MG BID X 14 DAYS Karen Thrasher APRN KEFLEX 500 MG ORAL CAPSULE TAKE 1 CAPSULE BY MOUTH EVERY 6 HOURS FOR 10 DAYS CEPHALEXIN 99694954175 Karen Thrasher APRN KEFLEX 500 MG ORAL CAPSULE TAKE 1 CAPSULE BY MOUTH EVERY 6 HOURS FOR 10 DAYS CEPHALEXIN 00393330705 S-old J-old BACTRIM DS 800-160 MG TABS TAKE 1 TABLET BY MOUTH 2 TIMES A DAY FOR 10 DAYS SULFAMETHOXAZOL E-TRIMETHOPRIM [id number] Karen Alexanderyael SUAREZ Medications Administered Medication Administered Instructions Start Date Stop Date Generic Name Provider ROCEPHIN 1 GM INJ SOLR ROCEPHIN 1 GM IN J SOLR S-old J-old Allergies, Adverse Reactions, Alerts Observed no known allergies at Results Date Name Value Unit Range Flag Description Office Visit: no travel TB r ead PPD RESULT 0 mm PPD result s in mm Clinical Summary: Labs-cbc c mp hgA1c tsh lipids GFR AA 58 mL/min/1.7 3m2 Glomerular Filtratio n Rate GFR 50 mL/min Glomerular fi ltration rate/1.73 sq M.predicted among non-blacks [Volume Rate/Area] in Serum, Plasma or Blood by Creatinine-based formula (MDRD) REACT LYMPH% 19.5 % reactive lymphocytes, blood, as percent of total leukocytes PMN BANDS 71.1 % neutrophils , band form as percent of blood leukocytes TSHREFLX FT4 1.20 m[iU]/L TSH (thy roid stimulating hormone) with reflex FT4 CREATINE SER 1.48 mg/dL creatine , serum CO2 PLSM/SER 24 meq/L carbon d ioxide, serum or plasma VLDL 130 mg/dL Cholesterol i n VLDL [Mass/volume] in Serum or Plasma C-LDL/C-HDL 3.8 LDL/HDL r atio, serum LDLPLASMA 103 mg/dL Cholesterol in LDL [Mass/volume] in Serum or Plasma - mg/dL HDLPLASMA 46 mg/dL Cholesterol in HDL [Mass/volume] in Serum or Plasma - mg/dL TRIGLYCRDES 137 mg/dL Triglycer brian [Mass/volume] in Serum or Plasma - mg/dL Lab Report: LIPID PANEL WITH REFLEX TO DIRECT LDL, LIPID PANEL WITH REFL ... HGBA1C 5.5 % OF TOTAL HGB % <5.7 N Hemoglobin A1c/Hemoglobin, total in Blood - % TSH 1.42 u[iU]/mL 0.40-4.50 N Thyrotropi n [Units/volume] in Serum or Plasma PSA 1.5 ng/mL < OR = 4.0 N Prostate s pecific Ag [Mass/volume] in Serum or Plasma BASO % MANU 0.3 % N basophils as percent of blood leukocytes, manual count EOS % MANU 2.4 % N eosinophil s as percent of blood leukocytes, manual count MONOCYTE % 10.6 % N Monocytes/ 100 leukocytes in Blood by Automated count LYMPH% P BLD 18.5 % N lymphocy wagner as percent of blood leukocytes PMN % 68.2 % N Neutrophils/1 00 leukocytes in Blood by Automated count ABS BASOS 20 {Cells}/uL 0-200 N Basophil s [#/volume] in Blood ABS EOS 161 {Cells}/uL 15-500 N Eosinophil s [#/volume] in Blood ABS MONOS 710 {Cells}/uL 200-950 N Monocyte s [#/volume] in Blood ABSLYMPHCT 1240 {Cells}/uL 850-3900 N Lympho cytes [#/volume] in Blood ABS NEUTROPH 4569 CELLS/UL 10*3/uL 8667-7818 N Neutrophils [#/volume] in Blood MPV 12.8 fL 7.5-12.5 H Platelet twila n volume [Entitic volume] in Blood by Peter PLATELETK/UL 169 THOUSAND/UL 10*3/uL 140-400 N platelet count RDW 14.0 % 11.0-15.0 N Erythrocyte distribution width [Ratio] by Automated count OL-MCHC 33.6 g/dL 32.0-36.0 N mean corpus cular hemoglobin concentration, rbc MCH 28.8 pg 27.0-33.0 N MCH [Entiti c mass] by Automated count MCV 85.9 fL 80.0-100.0 N MCV [Entit ic volume] by Automated count HCT 45.6 % 38.5-50.0 N Hematocrit [Volume Fraction] of Blood by Automated count HGB 15.3 g/dL 13.2-17.1 N Hemoglobin [Mass/volume] in Blood RBC M/UL 5.31 MILLION/UL 10*6/uL 4.20-5.80 N red blood count WBC CT BLOOD 6.7 10*3/uL 3.8-10.8 N leukocy te count, blood SGPT (ALT) 25 U/L 9-46 N Alanine aminotransferase [Enzymatic activity/volume] in Serum or Plasma SGOT (AST) 21 U/L 10-35 N Aspartate aminotransferase [Enzymatic activity/volume] in Serum or Plasma ALK PHOS 91 U/L 40-115 N Alkaline danay sphatase [Enzymatic activity/volume] in Blood BILI TOTAL 0.6 mg/dL 0.2-1.2 N Bilirubin. total [Mass/volume] in Serum or Plasma A/G RATIO 1.3 (calc) 1.0-2.5 N Albumin/ Globulin [Mass Ratio] in Serum or Plasma GLOBULIN TOT 3.1 G/DL (CALC) g/dL 1.9-3.7 N Globulin [Mass/volume] in Serum ALBUMIN EOP 4.0 g/dL 3.6-5.1 N Albumin [ Mass/volume] in Serum or Plasma by Electrophoresis PROTEIN, TOT 7.1 g/dL 6.1-8.1 N Protein [Mass/volume] in Serum or Plasma CALCIUM 9.1 mg/dL 8.6-10.3 N Calcium [Moles/volume] in Serum or Plasma CO2 31 mmol/L 20-32 N Carbon dioxid e, total [Moles/volume] in Venous blood CHLORIDE BLD 105 mmol/L 98-110 N chloride , blood POTASSIUM 4.9 mmol/L 3.5-5.3 N Potassium [Moles/volume] in Serum or Plasma SODIUM 143 mmol/L 135-146 N Sodium [Moles /volume] in Serum or Plasma BUN/CREAT 16 (calc) 6-22 N Urea nitrogen/Creatinine [Mass Ratio] in Serum or Plasma EGFR IF AFA 62 mL/min/1.7 3m2 >OR = 60 N Glomerular filtratio n rate/1.73 sq M.predicted among blacks [Volume Rate/Area] in Serum, Plasma or Blood by Creatinine-based formula (MDRD) EGFR 53 mL/min/1.7 3m2 >OR = 60 L Glomerular filtratio n rate/1.73 sq M.predicted [Volume Rate/Area] in Serum, Plasma or Blood by Creatinine-based formula (MDRD) CREATININE 1.39 mg/dL 0.70-1.25 H Creatini ne [Mass/volume] in Serum or Plasma BUN 22 mg/dL 7-25 N Urea nitrogen [Mass/volume] in Serum or Plasma GLUCOSE SER 84 mg/dL 65-139 N Glucose [ Mass/volume] in Serum or Plasma NON-HDL CHOL 57 MG/DL (CALC) mg/dL <130 N cholesterol, non -HDL, total CHOL/HDL % 1.9 (calc) <5.0 N cholest henri/HDL ratio, serum, percent LDL 44 MG/DL (CALC) mg/dL N Cholesterol in L DL [Mass/volume] in Serum or Plasma - mg/dL TRIGLYC TOT 53 mg/dL <150 N Triglycer brian [Mass/volume] in Serum or Plasma - mg/dL HDL 67 mg/dL >40 N Cholesterol i n HDL [Mass/volume] in Serum or Plasma - mg/dL CHOLESTEROL 124 mg/dL <200 N Cholester ol [Mass/volume] in Serum or Plasma - mg/dL Office Visit: Follow up on l abs rm 17 LDL GOAL <70 mg/dL LDL target l evel Plan of Care Type Date Detail Referral [facility] Gastroenterology [facility], [address], [place], [address] Referral excluded fr om report: Referral [facility] [place] [facility] [place], [address], [place], [address] Referral excluded fr om report: Referral Kidney and Hyper tension Referral [facility] Kidney & Hypertension, [address], [address] Referral [facility] Optometry [facility], [address] [place] [address], [phone] Referral excluded fr om report: Referral Kidney and Hyper tension Referral [facility] Kidney & Hypertension, [address], [address] Referral excluded fr om report: Referral [facility] Optometry [facility], [address] [place] [address], [phone] Referral excluded fr om report: Pending order T1 CMP Pending order T1 CBC with diff Pending order T1 HGBA1c Pending order T1 Lipid Panel Pending order T1 TSH reflex to free T4 Pending order Ankle Brachial I ndex Pending Order exclud ed from report: Pending order T1 Prostate Scre ening Pending order Hemoccult 1-3 82 271 Pending order Rocephin 1gm Inj Solr Patient education Patient Educat ion Given Patient education Medications Procedures Code Procedure Name Date Entry Date CPT-37359() Psychotherapy 30m -No E&M Medical() 20 07/05/26 CPT-10886() Psychotherapy 45m -No E&M Medical() 20 07/05/04 [facility]-[id number] Medication Reconciliation CPT-3075F Most recent systolic blood pressure 130-139 mm Hg CPT-3078F Most recent diastoli c blood pressure <[address] PHYSICIA [facility] Vas [facility]ular [place] [facility]-Cardiology CPT-76196() Psychotherapy 30m -E&M Add On() 06/07 CPT-90027() Psych Dx Eval WITH E&M -MD/TRANSCRIPTION Only() CPT-3075F Most recent systolic blood pressure 130-139 mm Hg CPT-3078F Most recent diastoli c blood pressure <80 mm Hg OPHTH [facility]Op[facility]ham[facility] Optometry CPT-3075F Most recent systolic blood pressure 130-1 39 mm Hg CPT-3079F Most recent diastolic blood pressure 80-8 9 mm Hg KIDNEY HT REF Kidney and Hypertension Referral [facility]-[id number] Medication Reconciliation [facility] ROD Ankle Brachial Index OPHTH OP [facility]-Op[facility]hamology [facility] 34681 T1 CMP [facility] 6399 T1 CBC with diff [facility] 496 T1 HGBA1c [facility] 04955 T1 Lipid Panel [facility] 39614 T1 TSH reflex to free T4 201 01/27/09 [facility] 5363 T1 Prostate Screening CPT-3077F Most recent systolic blood pressure >=140 mm Hg CPT-3079F Most recent diastoli c blood pressure 80-89 mm Hg CPT-39373 Venipuncture 35324 4 [facility] 6399 CBC with diff [facility] 05108 CMP 496 [facility] Test # HGBA1c 14892 [facility] Test # Lipid Panel 4 84770 [facility] Test # TSH reflex to free T4 CPT-3077F Most recent systolic blood pressure >=140 mm Hg CPT-04996 Hemoccult 1-3 21714 CPT-J0696 Rocephin 1gm Inj Solr 07/26 Vital Signs Date Name Value Unit Description BMI (Body Mass Index) 26.01 kg/m2 Bod y Mass Index (Ratio) Body Temperature 97.9 [degF] temperat ure E&M Body Temperature 36.61 Kathryn temperat ure in centigrade E&M BP Diastolic 78 mm[Hg] blood pressu re, diastolic BP Systolic 137 mm[Hg] blood pressur e, systolic BSA (Body Surface Area) 1.97 b reinaldo surface area Heart Rate 82 /min pulse rate Heart Rate 82 /min pulse rate 10 Height 69 [in_us] height E&M Height 175.26 cm height in cent imeters E&M Respiratory Rate 16 /min respirat ory rate E&M Weight Measured 175.5 [lb_av] weight E& M Weight Measured 175.5 [lb_av] weight E& M Weight Measured 79.77 kg weight in kilograms E&M BP Diastolic 98 mm[Hg] blood pressu re, diastolic, second observation BP Systolic 162 mm[Hg] blood pressur e, systolic, second observation Immunizations No information available. Advance Directives No information available.
--- NOTE | 2024-12-14 09:55 | XR_ITS ---
FINAL REPORT CLINICAL HISTORY: Follow-up distal radial fracture. COMPARISON: Doing 32,025 FINDINGS: 3 views of the left wrist were obtained. There has been no significant interval change in the previously seen distal left radial fracture. There is no new osseous abnormality. There continues to be mild soft tissue edema. IMPRESSION: No significant interval change in the previously seen distal left radial fracture. Reviewed, Interpreted and Dictated by Ivory Vines MD Transcribed by JAMIE Tobias Authenticated and [facility]
== END 2024-12-14 23:59 | disposition home or self-care (01) ==
LOC: RAD 09:43
PROVIDERS: Visit Provider Physician Assistant Surgical
DX: S52.502A Unspecified fracture of the lower end of left radius, initial encounter for closed fracture (principal); X58.XXXA Exposure to other specified factors, initial encounter
CPT/HCPCS: 73110